=== PATIENT | female | born 1945 | race Caucasian/White ===

== ENCOUNTER 2017-10-08 06:32 | Day surgery (SDC) | payer OTHER ==
[2017-10-07 15:56] LABS: Protime INR 1.07
--- NOTE | 2017-10-07 16:02 | RAD REPORT ---
EXAM DESCRIPTION: RAD - Chest Pa And Lat (2 Views) - 10/07/2017 3:17 pm CLINICAL HISTORY: Preop chest, pending cardiac catheterization COMPARISON: December 2014, May 2013 TECHNIQUE: PA and lateral views of the chest were obtained. FINDINGS: The lungs are fibrotic. No large mass or consolidation seen. Interstitial markings are mo re pronounced in each lung base than in 2015. This is favored to be progressive fibrosis. Acute inter stitial edema or infiltrate can give a similar presentation and correlation is needed with any suppor ting clinical findings. Slight fullness of each hilum not clearly different from prior imaging. Trachea is midline. Heart siz e is normal and central vasculature is within normal limits. No pleural effusion or pneumothorax see n. No acute bony finding noted. No aortic abnormality. IMPRESSION: Prominent interstitial markings in each base, left greater than right, superimposed on c hronic fibrotic change. Progression in each lung base could be due to interstitial infiltrate or edema in the acute clinical setting. Progressive fibrosis is possible as well.
[2017-10-08] MEDS ORDERED: NA CHLORIDE 0.9% 500 ML ONE (06:54)
[2017-10-08] MEDS ORDERED: MIDAZOLAM HCL 2 MG/2 ML INJ ONE (07:41)
[2017-10-08] MEDS ORDERED: FENTANYL CITR 100 MCG/2 ML ONE (07:41)
[2017-10-08] MEDS ORDERED: LIDOCAINE 1% 20 ML MDV ONE (07:41)
[2017-10-08] MEDS ORDERED: HEPA 1000U/500MLS 1,000 UNIT/500 ML BAG IV ONE (07:41)
[2017-10-08] MEDS ORDERED: ATROPINE SULF 1 MG/10 ML SYR IV ONE (07:42)
[2017-10-08] MEDS ORDERED: NA CHLORIDE 0.9% 50 ML ONE (07:42)
[2017-10-08] MEDS ORDERED: NITROGLYCERIN/D5W 25 MG/250 ML BTL IV ONE (08:37)
[2017-10-08] MEDS ORDERED: ASPIRIN 325 MG TAB ONE (09:04)
[2017-10-08] MEDS ORDERED: PRASUGREL (EFFIENT) 10 MG TAB ONE ×2 (09:05→09:08)
[2017-10-08 10:51] VITALS: BMI 19.9
[2017-10-08] MEDS ORDERED: NA CHLORIDE 0.9% 1,000 ML IV SCH (12:00)
[2017-10-08] MEDS ORDERED: NITROGLYCERIN 0.4 MG/TAB SL PRN (12:00)
[2017-10-08] MEDS ORDERED: ACETAMINOPHEN 325 MG TABLET PO PRN (12:00)
--- NOTE | 2017-10-08 12:14 | OP ---
Surgeon: Hudson Parker MD Tourist Information Officer: Carie Bernabe. Admitted to my service as an outpatient on 10/08/2017. The patient's primary care physician is Dr. Gissell chandler. Description Of Procedure: Ms. Chang is a 72-year-old, who was scheduled for an outpatient heart cath eterization secondary to classic unstable angina symptoms. She was brought in, prepped and draped in the routine sterile fashion, given 2 mg of Versed for IV sedation. A 6-Congolese sheath was introduced in the right common femoral artery. Angio-Seal was used to close the case. The procedure that was performed was selective coronary artery left heart catheterization, angioplasty, and stent of the RCA at mid level. A 6-Congolese sheath was used, 6-Congolese catheters was used. The LAD had about a 20% to 30% ulcerated plaque in the proximal LAD before the first diagonal. The circumflex was normal. The RCA had an 80% to 90% stenosis at mid RCA. A JR4 guide with side-hole was used initially, but I coul d not torque the guide because of tortuosity. I changed that to a 3DRC guide catheter that cannulate d the right main successfully. A Mobile wire was used to cross the lesion. We attempted primary refugio nt, but it did not work. We had to pre-dilate with a 1.5 balloon and then a 2.5 balloon Emerge, and then finally a 3.0 x 12 Synergy stent at 14 atmosphere with 0% residual. The patient tolerated the p rocedure well. Total conscious sedation was 1 hour. Blood Loss: 5 cc. Final Diagnosis: Coronary artery disease, status post successful angioplasty and stent of the RCA. The patient received Angiomax during the procedure. She will also get 60 mg of Effient, 325 mg of as pirin. Information Operator: Hudson Parker MD Plan: Plan is to observe the patient overnight and sent her home in the morning on Effient, aspirin, beta-blockers, and statin, and she will see me in the office in 2 weeks. MERCEDES/ARLENE Voice ID: [id number] Report ID: [id number]
[2017-10-08] MEDS ORDERED: PNEUMOCOCCAL VACCINE 0.5 ML IMVAC ONE (16:00)
[2017-10-08] MEDS: HYDROCODONE/APAP 5/325 MG TAB PO PRN (18:44)
[2017-10-08] MEDS ORDERED: ATORVASTATIN 80 MG TAB PO SCH (21:00)
[2017-10-09] MEDS: HYDROCODONE/APAP 5/325 MG TAB PO PRN (00:34)
[2017-10-09 04:45] LABS: Absolute Lymphocytes (CBC) 1.9 K/uL (0.7-4.9); Absolute Monocytes 0.7 K/uL (0.1-1.3); Absolute Neutrophil 5.3 K/uL (1.8-8.0); Basophils % 0.6 % (0-1.3); Eosinophils % 2.1 % (0-4.4); Hematocrit 35.6 % (36.0-45.0); Lymphocytes % 23.3 % (15.3-44.8); MCH 30.9 pg (27.0-35.0); MCV 91.9 fL (80-100); MPV 7.8 fL (7.6-11.3); Monocytes % 8.8 % (3.3-12.3); RBC Red Blood Cell Count 3.87 M/uL (3.86-4.86)
[2017-10-09 05:25] LABS: BUN Blood Urea Nitrogen 18 mg/dL (6-20); Glucose Level 88 mg/dL (65-120); HDL Cholesterol 52 mg/dL (29-89); LDL Cholesterol, Calculated 68 (<130)
[2017-10-09 05:33] LABS: Bicarbonate 27 mEq/L (21-31); Sodium Level 137 mEq/L (135-145)
[2017-10-09 05:39] LABS: Potassium 2.9 mEq/L (3.6-5.0)
[2017-10-09 05:54] VITALS: O2SAT 98
[2017-10-09] MEDS ORDERED: POTASSIUM 25 MEQ EFFERV TAB PO ONE (06:05)
--- NOTE | 2017-10-09 07:59 | EKG ---
Test Date: 2017-10-09 Test Time: 07:42:44 Plastic Extrusion Operator: VICTOR M MEASUREMENT RESULTS: Intervals: Rate: 58 NE: 130 QRSD: 68 QT: 436 QTc: 428 Castile: P: 98 NE: 130 QRS: 32 T: 49 INTERPRETIVE STATEMENTS: Sinus bradycardia Otherwise normal ECG Compared to ECG 12/12/2014 07:00:05 T-wave abnormality no longer present Electronically Signed On 10-09-17 07:58:53 CDT by Gokul Barnes
[2017-10-09] MEDS ORDERED: PRASUGREL (EFFIENT) 10 MG TAB PO SCH (09:00)
[2017-10-09] MEDS ORDERED: ASPIRIN 81 MG CHEWABLE TABLET PO SCH (09:00)
--- NOTE | 2017-10-09 12:44 | PN ---
Ms. Chang had a right coronary stent yesterday. She is in sinus rhythm today. Not having chest pain . Her right femoral artery looks good. She will be discharged home taking Lipitor, aspirin, and Eff ient, that is in addition to other medicine she was on before she came in. She will call and have an appointment with Dr. Parker in about 2 weeks. BOY/ARLENE Voice ID: [id number] Report ID: [id number]
[2017-10-09 14:56] VITALS: BP 144/75; TEMP 98.7
== END 2017-10-09 11:51 | disposition home or self-care (01) ==
LOC: CCL 06:32 → 2ND 08:50 → CCL 10-09 11:51
DX: I25.110 Atherosclerotic heart disease of native coronary artery with unstable angina pectoris (principal); I48.0 Paroxysmal atrial fibrillation; I10 Essential (primary) hypertension; Z88.6 Allergy status to analgesic agent
CPT/HCPCS: 36415 ×2; 71046; 80048; 80061; 85025; 85347 ×2; 85610; 85730; 93005; 93454; C1725; C1760; C1893; C9600; J0583; J2250; J3010